=== PATIENT | female | born 1950 | race Two or more races ===

== ENCOUNTER 2018-01-06 12:36 | Outpatient (CLI) | payer OTHER ==
[~2018-01-06 12:36] MED LIST: AVAPRO300 MG PO; CLARITIN10 M1 PO; PROTONIX40 MG PO; SYNTHROID50 MCG PO; XYZAL5 MG PO
== END 2018-01-06 12:50 | disposition home or self-care (01) ==
LOC: TOM 12:36
DX: G44.221 Chronic tension-type headache, intractable (principal)

== ENCOUNTER 2018-01-17 09:12 | Outpatient (CLI) | payer OTHER | END 2018-01-17 09:18 | disposition home or self-care (01) | LOC: RAD 09:12 | DX: S13.4XXA Sprain of ligaments of cervical spine, initial encounter (principal) ==

== ENCOUNTER 2018-08-23 08:57 | Outpatient (CLI) | payer OTHER ==
[2018-08-23] MEDS ORDERED: ALBUTEROL1.25 MG/3 (12:40)
[2018-08-23] MEDS ORDERED: SYMBICORT 80/10.2 GM (12:40)
[2018-08-23] MEDS ORDERED: PNEU16DI2 (12:41)
[2018-08-25] MEDS ORDERED: CLONAZEPAM0.5 MG (10:50)
== END 2018-08-23 09:09 | disposition home or self-care (01) ==
LOC: EKG 08:57 → LAB 08:57 → EKG 09:09
DX: I10 Essential (primary) hypertension (principal); Z01.810 Encounter for preprocedural cardiovascular examination

== ENCOUNTER 2018-08-30 09:02 | Day surgery (SDC) | payer OTHER ==
[~2018-08-30 09:02] MED LIST changes: +ALBUTEROL1.25 MG/3; +CLONAZEPAM0.5 MG; +PNEU16DI2; +SYMBICORT 80/10.2 GM
== END 2018-08-30 18:10 | disposition home or self-care (01) ==
LOC: CIR.AMB 09:02
DX: S52.531A Colles' fracture of right radius, initial encounter for closed fracture (principal)

== ENCOUNTER 2018-09-16 08:13 | Outpatient (CLI) | payer OTHER | END 2018-09-16 08:19 | disposition home or self-care (01) | LOC: RAD 08:13 | DX: M25.531 Pain in right wrist (principal) ==

== ENCOUNTER 2024-03-21 22:18 | Emergency (ER) | payer OTHER ==
[~2024-03-21] VITALS: Ht 160 cm; Wt 63.5 kg
[2024-03-21] MEDS ORDERED: NIFEDIPINE 10 MG CAPSULE PO ONE (22:37)
[2024-03-21] MEDS ORDERED: NIFEDIPINE 20 MG CAPSULE PO ONE (22:45)
[2024-03-21] MEDS ORDERED: FAMOtidine 10 MG/ML (4ML VIAL) IV ONE (23:15)
[2024-03-22] MEDS ORDERED: FAMOTIDINE/PF 20 MG/2 ML VIAL ONE (00:30)
[2024-03-22 00:51] LABS: HEMATOCRIT 39.5 % (36.0-45.00); HEMOGLOBIN 13.6 g/dL (12.0-15.00); MEAN CELL VOLUME 88.2 fL (80.00-100.00); MEAN CORPUSCULAR HEMOGLOBIN 30.4 pg (27.00-32.0); MEAN CORPUSCULAR HGB CONC 34.4 g/dl (32.0-36.0); PLATELET COUNT 321 K/uL (150-450); RED BLOOD COUNT 4.48 M/uL (4.00-6.00); RED CELL DISTRIBUTION WIDTH 13.4 % (11.5-14.5)
[2024-03-22 01:19] LABS: ALBUMIN 4.2 gm/dL (3.4-5.0); BILIRUBIN TOTAL 1.05 mg/dL (0.3-1.2); CALCIUM 9.9 mg/dL (8.5-10.1); CREATININE SERUM 0.98 mg/dL (0.55-1.02); GFR 55.63; GLOBULINA 3.1 G/DL (2.4-3.5); POTASSIUM 4.33 mEq/L (3.5-5.1); TOTAL PROTEIN 7.3 gm/dL (6.4-8.2)
[2024-03-22 01:23] LABS: INR 0.96; PARTIAL THROMBOPLASTIN TIME 33.8 SECONDS (22.0-34.0); PROTHROMBIN TIME 10.5 SECONDS (9.0-11.5)
[2024-03-22] MEDS ORDERED: ACETAMINOPHEN 500 MG GEL..CAP PO STA (03:06)
[2024-03-22] MEDS ORDERED: ACETAMINOPHEN 500 MG GEL..CAP PO ONE (03:07)
[2024-03-22 03:46] LABS: ABG PH 7.417 (7.35-7.45); ABG PO2 92.9 mmHg (80-100); ABG pCO2 35.3 mmHg (35-45); BASE EXCESS -1.6 mmol/l; BICARBONATE 22.2 mmol/l (23-25); SaO2 97.3 %; Tco2 23.3 mmol/l; allen test SATISFACTORY; o2 21 %; puncture site RADIAL RIGHT
== END 2024-03-22 05:49 ==
LOC: ER 22:20
PROVIDERS: General Practice
DX: I10 Essential (primary) hypertension (principal); R42 Dizziness and giddiness; R11.0 Nausea; J45.909 Unspecified asthma, uncomplicated; Z85.3 Personal history of malignant neoplasm of breast; E03.8 Other specified hypothyroidism; Z91.040 Latex allergy status; Z88.8 Allergy status to other drugs, medicaments and biological substances
CPT/HCPCS: 36415; 70450; 71045; 82803; 93005; 96365; 99284; J3490

== ENCOUNTER 2024-10-31 13:28 | Outpatient (CLI) | payer OTHER | END 2024-10-31 13:41 | disposition home or self-care (01) | LOC: MAMO-SONO 13:28 | PROVIDERS: ATTEND Surgery | DX: N60.11 Diffuse cystic mastopathy of right breast (principal); N60.12 Diffuse cystic mastopathy of left breast; E04.1 Nontoxic single thyroid nodule ==